=== PATIENT | male | born 1970 | race Caucasian/White ===

== ENCOUNTER 2018-01-01 08:06 | Emergency (ER) | payer BC ==
[2018-01-01 08:37] VITALS: BP 132/84
--- NOTE | 2018-01-01 09:49 | UC ---
Ear Complaint HPI - HPI Summary HPI Summary: 4 days of unrelieved sinus pressure, fatigue, congestion, cough and right ear with mild pressure. No fever. - History of Current Complaint Chief Complaint: UCGeneralIllness Stated Complaint: EAR COMP/ST Time Seen by Provider: 01/01/18 09:39 Hx Obtained From: Patient Onset/Duration: Gradual Onset, Lasting Days - 4 Pain Intensity: 4 Aggravating Factors: Nothing Alleviating Factors: Nothing - Allergies/Home Medications Allergies/Adverse Reactions: Allergies Allergy/AdvReac Type Severity Reaction Status Date / Time No Known Allergies Allergy Verified 01/01/18 08:34 Home Medications: Home Medications Olmesartan/Hydrochlorothiazide [Benicar Hct 20-12.5 mg] 1 tab PO DAILY 01/01/18 [History Confirmed 01/01/18] PMH/Surg Hx/FS Hx/Imm Hx Cardiovascular History: Hypertension - Surgical History Surgical History: None - Family History Known Family History: Positive: Cardiac Disease - father and brother, Hypertension - Social History Occupation: Employed Full-time Lives: With Family Alcohol Use: Rare Substance Use Type: None Smoking Status (MU): Never Smoked Tobacco Review of Systems Constitutional: Negative Skin: Negative Eyes: Eye Redness ENT: Sore Throat, Ear Ache, Nasal Discharge Respiratory: Cough Cardiovascular: Negative Gastrointestinal: Negative Genitourinary: Negative Motor: Negative Neurovascular: Negative Musculoskeletal: Negative Neurological: Negative Psychological: Negative All Other Systems Reviewed And Are Negative: Yes Physical Exam Triage Information Reviewed: Yes Appearance: Ill-Appearing - congested and looks unwell Vital Signs: Initial Vital Signs Temp 98.4 F 01/01/18 08:28 Pulse 70 01/01/18 08:28 Resp 18 01/01/18 08:28 BP 132/84 01/01/18 08:28 Pulse Ox 99 01/01/18 08:28 Eye Exam: Other - normal eom Eyes: Positive: Conjunctiva Inflamed - mild bilateral injection. ENT: Positive: Pharyngeal erythema, TM dull - right TM retracted. Dental Exam: Normal Neck: Positive: Supple, Nontender, No Lymphadenopathy Respiratory: Positive: Lungs clear, Normal breath sounds Cardiovascular: Positive: RRR, No Murmur Musculoskeletal Exam: Normal Neurological Exam: Normal Psychological Exam: Normal Skin Exam: Normal Ear Complaint Course/Dx - Course Course Of Treatment: amoxicillin for sinusitis; flonase for relief of drainage. - Differential Dx/Diagnosis Differential Diagnosis/HQI/PQRI: Otitis Externa, Otitis Media, Pharyngitis, URI , Other - sinusitis Provider Diagnoses: acute maxillary sinusitis, bilateral Discharge - Sign-Out/Discharge Documenting (check all that apply): Discharge/Admit/Transfer - Discharge Plan Condition: Stable Disposition: HOME Patient Education Materials: Sinusitis (ED) Referrals: Corey Lyon MD [Primary Care Provider] - Additional Instructions: begin amoxicillin for treatment of sinusitis; use flonase 2 sprays to both nostrils each daily for control of drainage. This should help to relieve the ear pressure. - Billing Disposition and Condition Condition: STABLE Disposition: HOME
== END 2018-01-01 10:01 | disposition home or self-care (01) ==
LOC: UCCORT 08:06
DX: I10 Essential (primary) hypertension (principal); J01.00 Acute maxillary sinusitis, unspecified
CPT/HCPCS: 99202; G0463

== ENCOUNTER 2019-10-03 18:25 | Emergency (ER) | payer BC ==
[2019-10-03 18:56] VITALS: BP 153/96
--- NOTE | 2019-10-03 19:10 | UC ---
Throat Pain/Nasal Oskar HPI - HPI Summary HPI Summary: 48-year-old male presents with 3-4 week history of nasal congestion, postnasal drip, mild sore throat, chest congestion, and a productive cough. States over the past 2 days started developing some bilateral ear pain and pressure. Denies fever, chills, ear drainage, dysphagia, chest pain, or shortness of breath. - History of Current Complaint Chief Complaint: UCGeneralIllness Stated Complaint: COUGH,EAR PAIN,CHEST CONGESTION Time Seen by Provider: 10/03/19 18:57 Hx Obtained From: Patient Pain Intensity: 0 - Allergies/Home Medications Allergies/Adverse Reactions: Allergies Allergy/AdvReac Type Severity Reaction Status Date / Time No Known Allergies Allergy Verified 10/03/19 18:56 Home Medications: Home Medications Olmesartan/Hydrochlorothiazide [Benicar Hct 20-12.5 mg] 1 tab PO DAILY 01/01/18 [History Confirmed 10/03/19] Amoxicillin PO (*) [Amoxicillin 875 MG (*)] 875 mg PO BID #19 tab 10/03/19 [Rx] Benzonatate CAP* [Tessalon 100 MG CAP*] 100 mg PO TID PRN #21 cap 10/03/19 [Rx] PMH/Surg Hx/FS Hx/Imm Hx Cardiovascular History: Hypertension - Surgical History Surgical History: None - Family History Known Family History: Positive: Cardiac Disease - father and brother, Hypertension - Social History Occupation: Employed Full-time Lives: With Family Alcohol Use: Rare Substance Use Type: None Smoking Status (MU): Never Smoked Tobacco Review of Systems All Other Systems Reviewed And Are Negative: Yes Constitutional: Negative: Fever, Chills ENT: Positive: Sore Throat, Ear Ache, Nasal Discharge, Sinus Congestion, Sinus Pain/Tenderness Respiratory: Positive: Cough. Negative: Shortness Of Breath Cardiovascular: Negative: Chest Pain Gastrointestinal: Positive: Negative Genitourinary: Positive: Negative Musculoskeletal: Positive: Negative Neurological/Mental Status: Positive: Negative Is Patient Immunocompromised?: No Physical Exam - Summary Physical Exam Summary: GENERAL APPEARANCE: Well developed, well nourished, alert and cooperative, and appears to be in no acute distress. EYES: Conjunctiva clear. No drainage. EARS: External auditory canals and tympanic membranes clear, hearing grossly intact. NOSE: Moderate nasal congestion. No nasal discharge. THROAT: Pharyngeal cobblestoning. No tonsilar inflammation, swelling, exudate, or lesions. Uvula midline. NECK: Neck supple, non-tender without lymphadenopathy. CARDIAC: Normal S1 and S2. No S3, S4 or murmurs. Rhythm is regular. There is no peripheral edema, cyanosis or pallor. Extremities are warm and well perfused. Capillary refill is less than 2 seconds. Peripheral pulses intact. LUNGS: Clear to auscultation without rales, rhonchi, wheezing or diminished breath sounds. Dry nonproductive cough. ABDOMEN: Positive bowel sounds. Soft, nondistended, nontender. No guarding or rebound. No masses or hepatosplenomegally. MUSKULOSKELETAL: ROM intact to all extremities. No joint erythema or tenderness. Normal muscular development. Normal gait. SKIN: Skin normal color, texture and turgor with no lesions or eruptions. Triage Information Reviewed: Yes Vital Signs: Initial Vital Signs Temp 98.5 F 10/03/19 18:53 Pulse 74 10/03/19 18:53 Resp 14 10/03/19 18:53 BP 153/96 10/03/19 18:53 Pulse Ox 99 10/03/19 18:53 Vital Signs Reviewed: Yes Throat Pain/Nasal Course/Dx - Course Course Of Treatment: 48-year-old male presents with 3-4 week history of nasal congestion, postnasal drip, mild sore throat, chest congestion, and a productive cough. States over the past 2 days started developing some bilateral ear pain and pressure. Denies fever, chills, ear drainage, dysphagia, chest pain, or shortness of breath. Afebrile. Hypertensive otherwise vital signs stable. Patient had moderate nasal congestion, normal TMs, pharyngeal cobblestoning without tonsillar swelling or exudate, no cervical lymphadenopathy, clear bilateral breath sounds, dry nonproductive cough, and otherwise unremarkable exam. Discussed with patient that considering the duration of his symptoms will treat him with an antibiotic for an upper respiratory infection with cough. We'll plan to put him on amoxicillin 875 mg twice a day 10 days however because her menses were closed at the time of exam patient needed a dose in the clinic as well as for in the morning therefore was given Augmentin 875 mg in order to achieve the appropriate dose of amoxicillin. Additionally recommending symptomatic treatment including Tessalon Perles 1 capsule every 8 hours as needed for cough. He is to follow up with his primary care provider in 3-5 days if symptoms are not improving. Anticipatory guidance and warning symptoms were reviewed with the patient. Verbalizes understanding and agrees with POC. - Differential Dx/Diagnosis Differential Diagnosis/HQI/PQRI: Otitis Media, Sinusitis, URI Provider Diagnosis: Upper respiratory infection with cough and congestion Discharge ED - Sign-Out/Discharge Documenting (check all that apply): Patient Departure All imaging exams completed and their final reports reviewed: No Studies - Discharge Plan Condition: Stable Disposition: HOME Prescriptions: Amoxicillin PO (*) [Amoxicillin 875 MG (*)] 875 mg PO BID #19 tab Benzonatate CAP* [Tessalon 100 MG CAP*] 100 mg PO TID PRN #21 cap PRN Reason: Cough Patient Education Materials: Upper Respiratory Infection (ED) Referrals: Corey Lyon MD [Primary Care Provider] - 3 Days Additional Instructions: Your history and exam are consistent with an upper respiratory infection with cough. Considering the duration of her symptoms will treat you with an antibiotic for the infection. Take amoxicillin 875 mg twice a day for 10 days. Take with food avoid upset stomach. Be sure to complete the entire course even if feeling better. We gave her the first dose in the clinic tonight. Take Tessalon Perles 1 capsule every 8 hours as needed for cough. You're given a dose of this in the clinic tonight. Use a saline rinse kit such as Neti Pot or NeilMed at least twice a day to help thin secretions and promote drainage of the sinuses. Use fluticasone (Flonase) nasal spray 2 sprays each nostril once daily. Take over the counter acetaminophen (Tylenol) or ibuprofen (Advil, Motrin) according to directions as needed for pain or fever. Follow up with your primary care provider in 3-5 days if symptoms persist. Seek immediate medical attention in the emergency room if you have fever greater than 100.5 F despite taking acetaminophen or ibuprofen, have chest pain , difficulty breathing, are unable to swallow, or have any worsening of symptoms. - Billing Disposition and Condition Condition: STABLE Disposition: Home
[2019-10-03] MEDS ORDERED: Amoxicillin/Clavulanate TAB* 875 MG PO ONE ×2 (19:38→19:47)
[2019-10-03] MEDS ORDERED: Benzonatate CAP* 100 MG PO ONE (19:38)
== END 2019-10-03 20:00 | disposition home or self-care (01) ==
LOC: UCCORT 18:25
DX: J06.9 Acute upper respiratory infection, unspecified (principal); R05 Cough; R09.89 Other specified symptoms and signs involving the circulatory and respiratory systems; I10 Essential (primary) hypertension; Z79.899 Other long term (current) drug therapy
CPT/HCPCS: 99213; A9270-GY; G0463